=== PATIENT | male | born 1955 | race Caucasian/White ===

== ENCOUNTER 2020-02-28 12:22 | Outpatient (CLI) | payer MEDICARE | END 2020-02-28 12:23 | disposition critical access hospital (66) | LOC: EMS 12:22 | PROVIDERS: ATTEND Surgery | DX: M54.2 Cervicalgia (principal); M25.569 Pain in unspecified knee | CPT/HCPCS: A0425; A0429 ==

== ENCOUNTER 2020-02-28 12:45 | Emergency (ER) | payer OTHER, MEDICARE ==
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
[2020-02-28] MEDS ORDERED: ACETAMINOPHEN 325 MG TABLET PO STA (13:14)
[2020-02-28] MEDS ORDERED: methocarbamoL 500 MG TABLET PO STA (13:14)
[2020-02-28] MEDS ORDERED: KETOROLAC 30 MG/ML VIAL IM STA (13:14)
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
[2020-02-28 14:44] VITALS: BP 145/81
== END 2020-02-28 14:56 | disposition home or self-care (01) ==
LOC: ED 12:45
DX: S16.1XXA Strain of muscle, fascia and tendon at neck level, initial encounter (principal); S46.911A Strain of unspecified muscle, fascia and tendon at shoulder and upper arm level, right arm, initial encounter; S80.01XA Contusion of right knee, initial encounter; V43.52XA Car driver injured in collision with other type car in traffic accident, initial encounter; W22.11XA Striking against or struck by driver side automobile airbag, initial encounter; Y92.410 Unspecified street and highway as the place of occurrence of the external cause; M47.812 Spondylosis without myelopathy or radiculopathy, cervical region; M17.11 Unilateral primary osteoarthritis, right knee
CPT/HCPCS: 72125; 73080; 73562; 99283; 99284; A9270

== ENCOUNTER 2020-08-19 11:22 | Day surgery (SDC) | payer MEDICARE ==
[2020-08-19] MEDS ORDERED: LACTATED RINGERS 1,000 ML IV ONE (11:37)
[2020-08-19] MEDS ORDERED: MIDAZOLAM 2 MG/2 ML VIAL ONE ×4 (13:41→14:40)
[2020-08-19] MEDS ORDERED: fentaNYL 250 MCG/5 ML VIAL ONE (13:41)
[2020-08-19] MEDS ORDERED: LACTATED RINGERS 800 ML IV ONE (14:45)
[2020-08-19 15:16] VITALS: BP 105/70
== END 2020-08-19 11:23 | disposition home or self-care (01) ==
LOC: SDS 11:22
PROVIDERS: ATTEND Surgery
PROC: 0DBK8ZZ Excision of Ascending Colon, Via Natural or Artificial Opening Endoscopic (ICD-10-PCS; principal; 2020-08-19 13:45)
DX: Z12.11 Encounter for screening for malignant neoplasm of colon (principal); D12.8 Benign neoplasm of rectum; D12.1 Benign neoplasm of appendix; D12.2 Benign neoplasm of ascending colon; K57.30 Diverticulosis of large intestine without perforation or abscess without bleeding; K64.8 Other hemorrhoids; F17.210 Nicotine dependence, cigarettes, uncomplicated; J44.9 Chronic obstructive pulmonary disease, unspecified; Z79.51 Long term (current) use of inhaled steroids
CPT/HCPCS: 45385; J3010; J7120